=== PATIENT | male | born 1980 | race Two or more races ===

== ENCOUNTER 2018-04-17 09:43 | Emergency (ER) | payer MEDICAID ==
[2018-04-17] MEDS ORDERED: methylPREDNISolone Sodium Succinate 125 MG/2 ML SDV IM ONE (10:36)
--- NOTE | 2018-04-17 10:41 | EDM.PDOC ---
ED HPI GENERAL MEDICAL PROBLEM - General Chief Complaint: Back Pain or Injury Stated Complaint: back pains Time Seen by Provider: 04/17/18 10:25 Source of Information: Reports: Patient History Limitations: Reports: No Limitations - History of Present Illness INITIAL COMMENTS - FREE TEXT/NARRATIVE: 37-year-old male with low back pain for the past several weeks, he has a chronic problem with back pain and has had injections in the past but had been doing well until a reinjury. He's been seen in the clinic several times as well as an emergency room visit over the past 2 weeks. He's trying to help out on a "home project" but can't keep up working because of the discomfort. No incontinence. If he coughs or sneezes pain radiates down the left leg. He is ambulating but with difficulty. He is taking muscle relaxers without relief. He is scheduled for an MRI on Tuesday. Location: Reports: Back Quality: Reports: Sharp, Stabbing Severity: Moderate Associated Symptoms: Denies: Fever/Chills, Headaches, Loss of Appetite, Malaise , Nausea/Vomiting, Shortness of Breath Lower Back Pain Score (Numeric/FACES): 9 - Related Data Allergies Allergy/AdvReac Type Severity Reaction Status Date / Time No Known Allergies Allergy Verified 04/17/18 10:13 Home Meds: Home Meds Cyclobenzaprine [Flexeril] 10 mg PO DAILY 04/01/18 [History] Past Medical History - Past Health History Medical/Surgical History: Denies Medical/Surgical History Musculoskeletal History: Reports: Back Pain, Chronic Social & Family History - Tobacco Use Smoking Status *Q: Light Tobacco Smoker Years of Tobacco use: 15 Packs/Tins Daily: 0.3 - Recreational Drug Use Recreational Drug Use: Yes Recreational Drug Type: Reports: Marijuana/Hashish Recreational Drug Use Frequency: Weekly ED ROS GENERAL - Review of Systems Review Of Systems: See Below Constitutional: Denies: Chills Respiratory: Denies: Shortness of Breath GI/Abdominal: Denies: Abdominal Pain, Nausea, Vomiting Skin: Reports: No Symptoms Neurological: Reports: Other (Some shooting pain down the left leg with sudden movement such as coughing or sneezing, no numbness or weakness) ED EXAM,LOWER BACK PAIN/INJURY - Physical Exam Exam: See Below Exam Limited By: No Limitations General Appearance: Alert, No Apparent Distress (Patient is not distressed but does look uncomfortable) Respiratory/Chest: No Respiratory Distress, Lungs Clear Back Exam: Paraspinal Tenderness (He reacts with tenderness to palpation over the left paralumbar area, some increased pain with flexion of the hip passively) Neurological: Alert, Normal Dorsiflexion, Normal Plantar Flexion, No Motor/ Sensory Deficits, Oriented x 3, Other (Straight leg raising is negative despite increasing his low back pain on the left side, there is no true radiculopathy reproducible) Course - Vital Signs Last Recorded V/S: Last Vital Signs Temp 98.9 F 04/17/18 10:12 Pulse 95 04/17/18 10:12 Resp 15 04/17/18 10:12 BP 135/86 04/17/18 10:12 Pulse Ox 100 04/17/18 10:12 - Orders/Labs/Meds Meds: Medications Discontinued Medications Generic Name Dose Route Start Last Admin Trade Name Corine PRN Reason Stop Dose Admin Methylprednisolone Sodium Succinate 125 mg 04/17/18 10:36 04/17/18 10:50 Solu-Medrol IM 04/17/18 10:37 125 mg ONETIME ONE Administration - Re-Assessments/Exams Free Text/Narrative Re-Assessment/Exam: 04/17/18 10:39 A [employer] search was done and his recent hydrocodone prescription from the emergency room is his only 1 in the past year. He was given 125 mg of IM Solu- Medrol hopefully to decrease some of the inflammation, and 10 additional hydrocodone to take until his MRI on Tuesday. He is to try to stay active as tolerated. Departure - Departure Time of Disposition: 11:08 Disposition: Home, Self-Care 01 Condition: Good Clinical Impression: Acute exacerbation of chronic low back pain - Discharge Information Instructions: Back Pain, Adult, [id number] Referrals: PCP,None [Primary Care Provider] - Forms: ED Department Discharge Care Plan Goals: Continue with anti-inflammatories and muscle relaxers until your MRI this Tuesday. Activity as tolerated. Use stronger pain medication sparingly if needed.
== END 2018-04-17 11:08 | disposition home or self-care (01) ==
LOC: JP.ED 09:43
DX: G89.29 Other chronic pain (principal); M54.5 Low back pain; F17.210 Nicotine dependence, cigarettes, uncomplicated
CPT/HCPCS: 96372; 99283; J2930